=== PATIENT | female | born 1940 | race Caucasian/White ===

== ENCOUNTER 2017-01-04 09:07 | Day surgery (SDC) | payer MEDICARE, OTHER ==
[~2017-01-04 09:07] MED LIST: KETOROLAC TROMETHAMINE 0.45% 4 DROP/0.4 ML DROPERETTE OS PRN
[2017-01-04] MEDS ORDERED: TOBRAMYCIN SULFATE/DEXAMETH OPH OINTMENT 3.5 GM ONE (09:44)
[2017-01-04] MEDS ORDERED: CHONDR SU A NA/HYALUR INTRAOC KIT (SURGICARE) ONE (09:44)
[2017-01-04] MEDS ORDERED: LIDOCAINE 1% INJ-PF (10 MG/ML) 30 ML SDV ONE (09:44)
[2017-01-04] MEDS ORDERED: EPINEPHRINE INJ/PF 1 MG/1 ML AMPULE ONE (09:44)
[2017-01-04] MEDS ORDERED: MIDAZOLAM 2 MG/2 ML INJ ONE ×2 (10:14→10:41)
[2017-01-04] MEDS ORDERED: FENTANYL CITRATE INJ/PF 100 MCG/2 ML AMPUL ONE (10:15)
[2017-01-04] MEDS: TROPICAMIDE 1% OPH SOLN 3 ML OS PRN ×3 (10:20→10:47)
[2017-01-04] MEDS: CYCLOPENTOLATE 0.2%/PHENYLEPHRINE 1% OPH SOLN 2 ML OS PRN ×3 (10:20→10:48)
[2017-01-04] MEDS: BESIFLOXACIN HCL 0.6% OPH SUSP 5 ML BOTTLE OS PRN ×3 (10:21→11:35)
[2017-01-04] MEDS: TETRACAINE HCL 0.5% OPH SOLN 0.6 ML DROPERETTE OS PRN ×3 (10:21→11:07)
== END 2017-01-04 12:16 | disposition home or self-care (01) ==
LOC: SC 09:07
PROVIDERS: ATTEND Ophthalmology
PROC: 08RK3JZ Replacement of Left Lens with Synthetic Substitute, Percutaneous Approach (ICD-10-PCS; principal; 2017-01-04 10:30)
DX: H25.12 Age-related nuclear cataract, left eye (principal); F17.210 Nicotine dependence, cigarettes, uncomplicated; E78.00 Pure hypercholesterolemia, unspecified; K21.9 Gastro-esophageal reflux disease without esophagitis; M19.90 Unspecified osteoarthritis, unspecified site; J44.9 Chronic obstructive pulmonary disease, unspecified; F41.9 Anxiety disorder, unspecified; Z79.51 Long term (current) use of inhaled steroids; Z79.899 Other long term (current) drug therapy; Z88.5 Allergy status to narcotic agent; Z88.2 Allergy status to sulfonamides
CPT/HCPCS: 66984; C1783; V2630; J2250; J3490 ×3; A9270; J0171; J3010; 142

== ENCOUNTER 2017-01-18 06:20 | Day surgery (SDC) | payer MEDICARE, OTHER ==
[~2017-01-18 06:20] MED LIST changes: +KETOROLAC TROMETHAMINE 0.45% 4 DROP/0.4 ML DROPERETTE OD PRN; -KETOROLAC TROMETHAMINE 0.45% 4 DROP/0.4 ML DROPERETTE OS PRN
[2017-01-18] MEDS: TETRACAINE HCL 0.5% OPH SOLN 0.6 ML DROPERETTE OD PRN ×3 (06:51→07:35)
[2017-01-18] MEDS: CYCLOPENTOLATE 0.2%/PHENYLEPHRINE 1% OPH SOLN 2 ML OD PRN ×3 (06:52→07:17)
[2017-01-18] MEDS: BESIFLOXACIN HCL 0.6% OPH SUSP 5 ML BOTTLE OD PRN ×4 (06:52→07:56)
[2017-01-18] MEDS: TROPICAMIDE 1% OPH SOLN 3 ML OD PRN ×3 (06:52→07:16)
[2017-01-18] MEDS ORDERED: MIDAZOLAM 2 MG/2 ML INJ ONE (07:05)
[2017-01-18] MEDS ORDERED: EPINEPHRINE INJ/PF 1 MG/1 ML AMPULE ONE (07:15)
[2017-01-18] MEDS ORDERED: LIDOCAINE 1% INJ-PF (10 MG/ML) 30 ML SDV ONE (07:15)
[2017-01-18] MEDS ORDERED: CHONDR SU A NA/HYALUR INTRAOC KIT (SURGICARE) ONE (07:15)
[2017-01-18] MEDS: TOBRAMYCIN SULFATE/DEXAMETH OPH OINTMENT 3.5 GM ONE ×2 (07:47→07:56)
[2017-01-18] MEDS ORDERED: CHONDR SU A NA/HYALUR SOD 0.5 ML DISP.SYRIN ONE (08:49)
[2017-01-18] MEDS ORDERED: EPHEDRINE SULFATE INJ 50 MG/1 ML AMPULE ONE (10:32)
== END 2017-01-18 08:30 | disposition home or self-care (01) ==
LOC: SC 06:20
PROVIDERS: ATTEND Ophthalmology
PROC: 08RJ3JZ Replacement of Right Lens with Synthetic Substitute, Percutaneous Approach (ICD-10-PCS; principal; 2017-01-18 07:30)
DX: H25.11 Age-related nuclear cataract, right eye (principal); Z96.1 Presence of intraocular lens; J45.909 Unspecified asthma, uncomplicated; M19.90 Unspecified osteoarthritis, unspecified site; K21.9 Gastro-esophageal reflux disease without esophagitis; E78.00 Pure hypercholesterolemia, unspecified; Z79.899 Other long term (current) drug therapy; Z88.5 Allergy status to narcotic agent; Z88.2 Allergy status to sulfonamides; F17.210 Nicotine dependence, cigarettes, uncomplicated
CPT/HCPCS: 66984; C1783; V2630; J2250; J3490 ×4; A9270; J0171; 142

== ENCOUNTER → 2017-09-20 | Outpatient (CLI) | payer MEDICARE, OTHER ==
[2017-09-20 11:25] LABS: APPEARANCE,URINE CLEAR; BILIRUBIN,URINE NEGATIVE (NEGATIVE); COLOR,URINE STRAW; GLUCOSE, URINE NEGATIVE (NEGATIVE); KETONES,URINE NEGATIVE (NEGATIVE); LEUKOCYTE ESTERASE,URINE NEGATIVE (NEGATIVE); NITRITE,URINE NEGATIVE (NEGATIVE); PROTEIN,URINE NEGATIVE (NEGATIVE); URINE SPECIFIC GRAVITY 1.002; UROBILINOGEN,URINE NEGATIVE mg/dL (<2.0)
[2017-09-20 11:35] LABS: ANION GAP 13 (5-19); BLOOD UREA NITROGEN 7 mg/dL (7-20); CARBON DIOXIDE 28 mmol/L (22-30); CHLORIDE 97 mmol/L (98-107); GLUCOSE 90 mg/dL (75-110); POTASSIUM 4.8 mmol/L (3.6-5.0); SODIUM 137.6 mmol/L (137-145)
--- NOTE | 2017-09-20 12:13 | RADIOLOGY REPORT (SQ) ---
EXAM DESCRIPTION: CHEST PA/LATERAL COMPLETED DATE/TIME: 09/20/2017 11:35 am REASON FOR STUDY: PRE OP COMPARISON: None. EXAM PARAMETERS: NUMBER OF VIEWS: two views TECHNIQUE: Digital Frontal and Lateral radiographic views of the chest acquired. RADIATION DOSE: NA LIMITATIONS: none FINDINGS: LUNGS AND PLEURA: No opacities, masses or pneumothorax. No pleural effusion. Chronic appe aring interstitial changes are identified. Bilateral apical pleural-parenchymal scarring is identifi ed. There is evidence for obstructive lung disease. MEDIASTINUM AND HILAR STRUCTURES: No masses or contour abnormalities. HEART AND VASCULAR STRUCTURES: Heart normal size. No evidence for failure. BONES: No acute findings. HARDWARE: None in the chest. OTHER: No other significant finding. IMPRESSION: No acute findings. Obstructive lung disease with chronic appearing changes. Other find ings as noted above TECHNICAL DOCUMENTATION: JOB ID: [id number] [email or web address]- All Rights Reserved
[2017-09-20 14:25] LABS: ABSOLUTE BASOPHILS # (AUTO) 0.1 10^3/uL (0.0-0.2); ABSOLUTE EOSINOPHILS # (AUTO) 0.2 10^3/uL (0.0-0.6); ABSOLUTE MONOCYTES (AUTO) 0.5 10^3/uL (0.1-1.4); ABSOLUTE NEUT (AUTO) 3.5 10^3/uL (1.7-8.2); BASOPHILS % (AUTO) 1.3 % (0-2); EOSINOPHILS % (AUTO) 2.8 % (0-6); HEMATOCRIT 40.2 % (36.0-47.0); HEMOGLOBIN 13.5 g/dL (12.0-15.5); LYMPHOCYTES % (AUTO) 41.3 % (13-45); MEAN CORPUSCULAR HEMOGLOBIN 30.7 pg (27.0-33.4); MEAN CORPUSCULAR HGB CONC 33.5 g/dL (32.0-36.0); MEAN CORPUSCULAR VOLUME 92 fl (80-97); MONOCYTES % (AUTO) 6.5 % (3-13); PLATELET COUNT 246 10^3/uL (150-450); RED BLOOD COUNT 4.39 10^6/uL (3.72-5.28); RED CELL DISTRIBUTION WIDTH 13.7 % (11.5-14.0); SEGMENTED NEUTROPHILS % (AUTO) 48.1 % (42-78); TOTAL CELLS COUNTED % (AUTO) 100 %; WHITE BLOOD COUNT 7.2 10^3/uL (4.0-10.5)
--- NOTE | 2017-09-21 08:02 | EKG REPORT ---
SEVERITY:- NORMAL ECG - SINUS RHYTHM : Confirmed by: Laxmi Henry MD 21-Sep-2017 08:01:09
== END ==
LOC: OD 10:45
PROVIDERS: ATTEND Orthopaedic Surgery
DX: Z01.810 Encounter for preprocedural cardiovascular examination (principal); Z01.812 Encounter for preprocedural laboratory examination; Z01.818 Encounter for other preprocedural examination; J44.9 Chronic obstructive pulmonary disease, unspecified
CPT/HCPCS: 36415; 71020; 80048; 81001; 85025; 93005; 93010

== ENCOUNTER 2017-10-16 06:35 | Inpatient (IN) | payer MEDICARE, OTHER ==
[~2017-10-16 06:35] MED LIST changes: +BUPIVACAINE INJ/PF LIPOSOME/PF 266 MG/20 ML SDV IJ PRN; +BUPIVACAINE INJ/PF LIPOSOME/PF 266 MG/20 ML SDV ONE; +CEFAZOLIN INJ 1 GM VIAL INJ PRN; +IBUPROFEN 800 MG/NS 250 ML IV PRN; -KETOROLAC TROMETHAMINE 0.45% 4 DROP/0.4 ML DROPERETTE OD PRN; +LANSOPRAZOLE 15 MG TAB.RAP.DR PO PRN; +LIDOCAINE 0.5% INJ-PF (5 MG/ML) 50 ML SDV SUBCUT PRN; +OXYCODONE HCL SR 10 MG TABLET PO PRN; +THROMBIN (BOVINE) 5000 UNIT EPITAXIS KIT ONE; +THROMBIN (BOVINE) TOPICAL 20000 UNIT VIAL ONE; +VANCOMYCIN HCL 1,000 MG in DEXTROSE 5%-WATER 250 ML IV PRN
[2017-10-16] MEDS ORDERED: MIDAZOLAM 2 MG/2 ML INJ ONE (06:49)
[2017-10-16] MEDS ORDERED: FENTANYL CITRATE INJ/PF 100 MCG/2 ML AMPUL ONE (06:49)
[2017-10-16] MEDS ORDERED: ONDANSETRON HCL INJ/PF 4 MG/2 ML SDV ONE (06:50)
[2017-10-16] MEDS ORDERED: EPHEDRINE SULFATE INJ 50 MG/1 ML AMPULE ONE (06:50)
[2017-10-16] MEDS ORDERED: PROPOFOL INJ 200 MG/20 ML VIAL IV ONE (06:50)
[2017-10-16] MEDS ORDERED: ACETAMINOPHEN 0 ML IV ONE (06:51)
[2017-10-16] MEDS ORDERED: TRANEXAMIC ACID INJ/PF 1,000 MG/10 ML SDV IV ONE ×2 (07:37→12:00)
[2017-10-16] MEDS ORDERED: FENTANYL CITRATE INJ/PF 100 MCG/2 ML AMPUL IV PRN ×3 (09:22)
[2017-10-16] MEDS ORDERED: PROMETHAZINE HCL INJ 25 MG/1 ML VIAL IV PRN (09:22)
[2017-10-16] MEDS ORDERED: DIPHENHYDRAMINE HCL 50 MG/ML VIAL IV PRN ×2 (09:22→09:49)
--- NOTE | 2017-10-16 09:46 | Operative Report ---
Operative Report DATE OF SURGERY: 10/16/17 PREOPERATIVE DIAGNOSIS: Left hip arthritis OPERATION: Left hip arthroplasty SURGEON: CHIP NOVAK 1ST TIRE TESTER: SAWYER SCALES ANESTHESIA: Spinal TISSUE REMOVED OR ALTERED: Bone to pathology ESTIMATED BLOOD LOSS: 100 PROCEDURE: Implants used: Femur: Buffalo triathlon 2 size 3 femur Acetabular shell: 50 mm PSL shell Liner: 36 mm flat cross-link Poliquin liner Head: 36 mm chrome cobalt head -5 neck The patient is placed in a right lateral decubitus position on the operating table. The left lower extremity and hindquarter is prepped and draped in a sterile fashion. A curvilinear incision was made over the greater trochanter a posterior approach the hip was taken. The femoral head is dislocated and the femoral neck transected using an oscillating saw. Attention was next turned to the acetabulum. Soft tissues cleared off the acetabulum using electrocautery. The acetabulum was then prepared using a series of hemispherical reamers until a 50 millimeters reamer is seated. Subsequently a 50 millimeters [place] titanium PSL shell is impacted into position and secured with one screw. A standard flat 36 millimeters cross-link liner is impacted into the shell. Attention was next turned to the femur. Access is gained to the femoral canal using a box osteotome to the piriformis fossa. The femur is then prepared using a series of broaches until a number 3 broach is seated. A trial reduction was now performed using a 36 millimeters head with -5 neck. Preoperative leg length was recreated and is excellent anterior posterior stability. A decision was made to proceed with the above construct. All trial implants were removed. The wound is irrigated with pulsed lavage. A number 3 stem is impacted into the femoral canal. A trial reduction was again performed with a 36 mm head and a -5 neck. Findings as previously. The hip was dislocated one last time and the final chrome-cobalt head is impacted onto the trunnion. The hip was reduced. Wound is copiously irrigated with pulsed lavage. Sent closed in layers using interrupted Vicryl followed by cara. A sterile dressing is applied and the patient's returned to recovery room in satisfactory patient.
[2017-10-16] MEDS ORDERED: ESTROGENS,CONJUGATED 0.625 MG/1 GM 30 GM TUBE VG PRN (09:47)
[2017-10-16] MEDS ORDERED: MAG HYDROX/AL HYDROX/SIMETH SUSP 30 ML UDCUP PO PRN (09:49)
[2017-10-16] MEDS ORDERED: OXYCODONE HCL IR 5 MG TABLET PO PRN (09:49)
[2017-10-16] MEDS ORDERED: ONDANSETRON 4 MG TAB.RAPDIS PO PRN (09:49)
[2017-10-16] MEDS ORDERED: MORPHINE SULFATE 10 MG/ML INJ IM PRN (09:49)
[2017-10-16] MEDS ORDERED: ONDANSETRON HCL INJ/PF 4 MG/2 ML SDV IV PRN (09:49)
[2017-10-16] MEDS ORDERED: MORPHINE SULFATE 10 MG/ML INJ IV PRN ×2 (09:49)
[2017-10-16] MEDS ORDERED: ZOLPIDEM TARTRATE 5 MG TABLET PO PRN (09:49)
[2017-10-16] MEDS ORDERED: (PENDING PHARMACY ID) (Fluticasone Propionate [Flonase Allergy Relief] 9.9 ML) NS SCH (10:00)
[2017-10-16] MEDS ORDERED: [UNRECOGNIZED DRUG - OTHER] PO SCH (10:00)
[2017-10-16] MEDS ORDERED: ALBUTEROL SULFATE HFA (90 MCG/PUFF) 200 PUFF/8.5 GM MDI IH PRN ×2 (10:30→20:00)
[2017-10-16] MEDS ORDERED: TRANEXAMIC ACID INJ/PF 1,000 MG/10 ML SDV IV PRN (12:18)
--- NOTE | 2017-10-16 12:26 | RADIOLOGY REPORT (SQ) ---
EXAM DESCRIPTION: PELVIS AP COMPLETED DATE/TIME: 10/16/2017 10:36 am REASON FOR STUDY: Post Op Long Cassette in PACU M16.12 UNILATERAL PRIMARY OSTEOARTHRITIS, LEFT HIP COMPARISON: None. NUMBER OF VIEWS: One view TECHNIQUE: Digital radiographic images of the pelvis post-procedure LIMITATIONS: None. FINDINGS: BONES: No worrisome or unexpected findings post-procedure. Osteopenic DEVICE: Left hip replacement, non cemented. Single acetabular screw present SOFT TISSUES: No worrisome findings. Expected postoperative soft tissue changes. IMPRESSION: SATISFACTORY POSTOPERATIVE PELVIS. TECHNICAL DOCUMENTATION: JOB ID: [id number] [employer]- All Rights Reserved
[2017-10-16] MEDS ORDERED: PHENYLEPHRINE HCL INJ/PF 10 MG/1 ML SDV ONE (14:06)
[2017-10-16] MEDS ORDERED: DEXAMETHASONE SOD PHOSPHATE INJ 4 MG/1 ML VIAL ONE (14:06)
[2017-10-16] MEDS ORDERED: LIDOCAINE 2% INJ-PF (20 MG/ML) 2 ML AMPUL ONE (14:06)
[2017-10-16] MEDS: MORPHINE SULFATE 10 MG/ML INJ IV PRN ×5 (14:47→21:59)
[2017-10-16] MEDS: IBUPROFEN 800 MG in NORMAL SALINE 250 ML IV SCH ×2 (14:48→21:53)
[2017-10-16] MEDS ORDERED: ACETAMINOPHEN 100 ML IV ONE (15:49)
[2017-10-16] MEDS: HYDROCODONE/ACETAMINOPHEN 5-325 MG TABLET PO PRN (18:13)
[2017-10-16] MEDS: PREGABALIN 75 MG CAPSULE PO SCH (18:14)
[2017-10-16] MEDS: RINGERS SOLUTION,LACTATED 1,000 ML IV PRN (18:15)
[2017-10-16] MEDS: SIMVASTATIN 40 MG TABLET PO SCH (21:53)
[2017-10-16] MEDS: AMITRIPTYLINE HCL 75 MG TABLET PO SCH (21:53)
[2017-10-16] MEDS ORDERED: OXYCODONE HCL SR 10 MG TABLET PO SCH (22:00)
[2017-10-16] MEDS ORDERED: VANCOMYCIN HCL 1,000 MG in DEXTROSE 5%-WATER 250 ML IV ONE (22:00)
[2017-10-16] MEDS ORDERED: (PENDING PHARMACY ID) (Carisoprodol [Soma] 250 MG) PO SCH (22:00)
[2017-10-17 06:03] LABS: HEMATOCRIT 32.5 % (36.0-47.0); HEMOGLOBIN 10.9 g/dL (12.0-15.5); MEAN CORPUSCULAR HEMOGLOBIN 30.9 pg (27.0-33.4); MEAN CORPUSCULAR HGB CONC 33.6 g/dL (32.0-36.0); MEAN CORPUSCULAR VOLUME 92 fl (80-97); PLATELET COUNT 215 10^3/uL (150-450); RED BLOOD COUNT 3.53 10^6/uL (3.72-5.28); RED CELL DISTRIBUTION WIDTH 13.7 % (11.5-14.0); WHITE BLOOD COUNT 7.2 10^3/uL (4.0-10.5)
[2017-10-17 06:18] LABS: ANION GAP 7 (5-19); BLOOD UREA NITROGEN 8 mg/dL (7-20); CARBON DIOXIDE 27 mmol/L (22-30); CHLORIDE 100 mmol/L (98-107); GLUCOSE 106 mg/dL (75-110); POTASSIUM 4.1 mmol/L (3.6-5.0); SODIUM 134.2 mmol/L (137-145)
--- NOTE | 2017-10-17 06:42 | PDOC PROGRESS REPORT ---
Subjective Progress Note for:: 10/17/17 Reason For Visit: LEFT HIP ARTHRITIS 77-year-old white female postop day 1 left hip arthroplasty for osteoarthritis. Patient with minimal complaints. Physical Exam Vital Signs: Temp Pulse Resp BP Pulse Ox 36.8 C 64 17 123/52 L 93 10/16/17 23:08 10/16/17 23:08 10/16/17 23:08 10/16/17 23:08 10/16/17 23:08 Intake & Output 10/15/17 10/16/17 10/17/17 06:59 06:59 06:59 Intake Total 3050 Output Total 1050 Balance 2000 Weight 64.5 kg General appearance: PRESENT: no acute distress Head exam: PRESENT: normocephalic Respiratory exam: PRESENT: unlabored Cardiovascular exam: PRESENT: RRR Pulses: PRESENT: +1 pedal pulses bilateral Vascular exam: PRESENT: normal capillary refill GI/Abdominal exam: PRESENT: soft Rectal exam: PRESENT: deferred Extremities exam: PRESENT: other - Left hip dressing clean dry and intact. Leg lengths are equal. Distal neurovascular examination is intact. Neurological exam: PRESENT: alert, awake, oriented to person, oriented to place , oriented to time, oriented to situation. ABSENT: motor sensory deficit Psychiatric exam: PRESENT: appropriate affect, normal mood. ABSENT: homicidal ideation, suicidal ideation Skin exam: PRESENT: dry, intact, warm. ABSENT: cyanosis, rash Results Laboratory Results: 10/17/17 05:47 10/17/17 05:47 10/16/17 10/17/17 10/17/17 07:11 05:47 05:47 WBC 7.2 RBC 3.53 L Hgb 10.9 L Hct 32.5 L MCV 92 MCH 30.9 MCHC 33.6 RDW 13.7 Plt Count 215 Sodium 134.2 L Potassium 4.1 Chloride 100 Carbon Dioxide 27 Anion Gap 7 BUN 8 Creatinine 0.63 Est GFR ( Amer) > 60 Est GFR (Non-Af Amer) > 60 Glucose 106 Calcium 9.0 Blood Type A POSITIVE Antibody Screen NEGATIVE Impressions: Pelvis X-Ray 10/16/17 09:50 IMPRESSION: SATISFACTORY POSTOPERATIVE PELVIS. Status: Imported from PACS Assessment & Plan - Diagnosis (1) Arthritis of left hip Is this a current diagnosis for this admission?: Yes Plan: 77-year-old white female postop day 1 left hip arthroplasty with uneventful course. Patient will be seen by physical therapy today for weightbearing as tolerated ambulation. Anticipate discharge home tomorrow with home health nursing and home health physical therapy. - Time Time Spent with patient: 15-24 minutes Anticipated discharge: Home with Homehealth Within: within 24 hours
[2017-10-17] MEDS: IBUPROFEN 800 MG in NORMAL SALINE 250 ML IV SCH ×3 (06:50→21:25)
[2017-10-17] MEDS: RINGERS SOLUTION,LACTATED 1,000 ML IV PRN (06:52)
[2017-10-17] MEDS: LANSOPRAZOLE 30 MG TAB.RAP.DR PO SCH (06:52)
[2017-10-17] MEDS ORDERED: ESCITALOPRAM OXALATE 10 MG TABLET PO SCH (10:00)
[2017-10-17] MEDS: PREGABALIN 75 MG CAPSULE PO SCH ×2 (11:37→18:05)
[2017-10-17] MEDS: MULTIVITAMIN TABLET PO SCH (11:38)
[2017-10-17] MEDS: ESCITALOPRAM OXALATE 10 MG TABLET PO SCH (11:38)
[2017-10-17] MEDS: MORPHINE SULFATE 10 MG/ML INJ IV PRN (11:39)
[2017-10-17] MEDS: FLUTICASONE NASAL SPRAY 50 MCG/SPRY 120 SPRAY/16 GM NASL SCH (11:40)
[2017-10-17] MEDS: SIMVASTATIN 40 MG TABLET PO SCH (21:25)
[2017-10-17] MEDS: AMITRIPTYLINE HCL 75 MG TABLET PO SCH (21:25)
[2017-10-18] MEDS: IBUPROFEN 800 MG in NORMAL SALINE 250 ML IV SCH (05:52)
[2017-10-18] MEDS: LANSOPRAZOLE 30 MG TAB.RAP.DR PO SCH (05:52)
[2017-10-18 06:24] LABS: HEMATOCRIT 33.5 % (36.0-47.0); HEMOGLOBIN 11.1 g/dL (12.0-15.5); MEAN CORPUSCULAR HEMOGLOBIN 30.8 pg (27.0-33.4); MEAN CORPUSCULAR HGB CONC 33.2 g/dL (32.0-36.0); MEAN CORPUSCULAR VOLUME 93 fl (80-97); PLATELET COUNT 204 10^3/uL (150-450); RED CELL DISTRIBUTION WIDTH 13.7 % (11.5-14.0); WHITE BLOOD COUNT 6.3 10^3/uL (4.0-10.5)
--- NOTE | 2017-10-18 07:03 | PDOC DISCHARGE SUMMARY ---
General - Admit/Disc Date/PCP Admission Date/Primary Care Provider: 10/16/17 06:35 LAZARO LACY JR, MD Discharge Date: 10/18/17 - Discharge Diagnosis (1) Arthritis of left hip Is this a current diagnosis for this admission?: Yes - Additional Information Resuscitation Status: Full Code Discharge Diet: As Tolerated, Regular Discharge Activity: No Driving, No tub bath, Walk Frequently Home Medications: Albuterol Sulfate [Proair HFA] 2 puff IH Q8HP PRN 12/30/16 Amitriptyline HCl [Elavil 75 Mg Tablet] 75 mg PO QHS 12/30/16 Carisoprodol [Soma] 250 mg PO QHS 12/30/16 Omeprazole 40 mg PO DAILY 12/30/16 Simvastatin 40 mg PO QHS 12/30/16 Escitalopram Oxalate 5 mg PO QAM 01/11/17 Fluticasone Propionate [Flonase Nasal [place] 50 Mcg/[place] 16 gm] 1 spray NASL DAILY 10/16/17 Folic Acid/Multivit,Iron,[place] [One Daily For Women Tablet] 1 tab PO DAILY 10/16 Sennosides/Docusate Sodium [Senna-S Tablet] 3 each PO QHS 10/16/17 History of Present Illness History of Present Illness: CARSON LAWRENCE is a 77 year old female with progressive pain and decreased function due to left hip arthritis who was admitted through the OR for elective total left hip arthroplasty. Hospital Course Hospital Course: 77-year-old white female with left hip arthritis admitted through the OR for elective total left hip arthroplasty. Patient undergoes this procedure without complication and is returned to PACU in satisfactory condition. She was taken to the surgical floor where she was seen by nursing staff and Dr. Sorensen and Rufus MCCARTY for pain control. She works with physical therapy to work towards independent ambulation and increase strength and range of motion of left lower extremity. She makes great progress ambulating a total of 150 feet independently. She will be discharged to a retirement facility today with a rolling wheeled walker. Physical Exam Vital Signs: Temp Pulse Resp BP Pulse Ox 36.7 C 62 16 123/43 L 94 10/17/17 20:29 10/17/17 23:35 10/17/17 20:29 10/17/17 20:29 10/17/17 23:35 Intake & Output 10/16/17 10/17/17 10/18/17 06:59 06:59 06:59 Intake Total 3050 1360 Output Total 1050 500 Balance 2000 860 Weight 64.5 kg General appearance: PRESENT: no acute distress, well-developed, well-nourished Head exam: PRESENT: atraumatic, normocephalic Respiratory exam: PRESENT: unlabored Pulses: PRESENT: normal dorsalis pedis pul, +2 pedal pulses bilateral Vascular exam: PRESENT: normal capillary refill Additional comments: Patient sitting upright in chair at the bedside with bilateral lower extremities in full extension in retractable ottoman. Patient is nontender to palpation on the left hip and her OpSite dressings are clean dry and intact. These are left in place. She has minimal pedal edema and brisk capillary refill to toes on bilateral lower external knees. Her sensory motor functions are intact and her distal neurovascular exam is intact. Musculoskeletal exam: PRESENT: ambulatory Additional comments: Patient has made great progress of physical therapy and relating up to 150 feet independently. She will continue to work with physical therapy at retirement facility to improve distance of ambulation and strength range of motion of left lower extremity. Neurological exam: PRESENT: alert, awake, oriented to person, oriented to place , oriented to time, oriented to situation, CN II-XII grossly intact. ABSENT: motor sensory deficit Psychiatric exam: PRESENT: appropriate affect, normal mood. ABSENT: homicidal ideation, suicidal ideation Skin exam: PRESENT: dry, intact, warm. ABSENT: cyanosis, rash Results Laboratory Results: 10/18/17 05:36 10/17/17 05:47 10/18/17 05:36 WBC 6.3 RBC 3.60 L Hgb 11.1 L Hct 33.5 L MCV 93 MCH 30.8 MCHC 33.2 RDW 13.7 Plt Count 204 Impressions: Pelvis X-Ray 10/16/17 09:50 IMPRESSION: SATISFACTORY POSTOPERATIVE PELVIS. Plan Discharge Plan: 77-year-old white female 2 days status post total left hip arthroplasty. Patient has made great progress with physical therapy ambulating 150 feet independently. She will continue to work with physical therapy at a retirement facility to improve strength range of motion of left lower extremity. She will be discharged to a retirement facility today with a rolling walker. She will follow-up with [facility] for surgery with Dr. Sorensen and Rufus MCCARTY 2 weeks postoperatively for staple removal and reevaluation. Time Spent: Less than 30 Minutes
[2017-10-18] MEDS: ACETAMINOPHEN 325 MG TABLET PO PRN ×2 (10:43→16:23)
[2017-10-18] MEDS: FLUTICASONE NASAL SPRAY 50 MCG/SPRY 120 SPRAY/16 GM NASL SCH (10:44)
[2017-10-18] MEDS: ESCITALOPRAM OXALATE 10 MG TABLET PO SCH (10:44)
[2017-10-18] MEDS: MULTIVITAMIN TABLET PO SCH (10:44)
[2017-10-18] MEDS: PREGABALIN 75 MG CAPSULE PO SCH ×2 (10:45→18:15)
[2017-10-18] MEDS: HYDROCODONE/ACETAMINOPHEN 5-325 MG TABLET PO PRN (18:14)
[2017-10-18] MEDS: SIMVASTATIN 40 MG TABLET PO SCH (21:04)
[2017-10-18] MEDS: AMITRIPTYLINE HCL 75 MG TABLET PO SCH (21:04)
[2017-10-19] MEDS: HYDROCODONE/ACETAMINOPHEN 5-325 MG TABLET PO PRN ×3 (03:55→14:46)
[2017-10-19] MEDS: LANSOPRAZOLE 30 MG TAB.RAP.DR PO SCH (06:02)
[2017-10-19 06:37] LABS: HEMATOCRIT 30.1 % (36.0-47.0); HEMOGLOBIN 10.1 g/dL (12.0-15.5); MEAN CORPUSCULAR HEMOGLOBIN 30.8 pg (27.0-33.4); MEAN CORPUSCULAR HGB CONC 33.6 g/dL (32.0-36.0); MEAN CORPUSCULAR VOLUME 92 fl (80-97); PLATELET COUNT 163 10^3/uL (150-450); RED BLOOD COUNT 3.28 10^6/uL (3.72-5.28); RED CELL DISTRIBUTION WIDTH 13.3 % (11.5-14.0); WHITE BLOOD COUNT 7.1 10^3/uL (4.0-10.5)
[2017-10-19] MEDS: FLUTICASONE NASAL SPRAY 50 MCG/SPRY 120 SPRAY/16 GM NASL SCH (09:35)
[2017-10-19] MEDS: ESCITALOPRAM OXALATE 10 MG TABLET PO SCH (09:35)
[2017-10-19] MEDS: MULTIVITAMIN TABLET PO SCH (09:35)
[2017-10-19] MEDS: PREGABALIN 75 MG CAPSULE PO SCH (09:36)
[2017-10-19 14:32] VITALS: BP 140/71
== END 2017-10-19 15:16 | DRG 470 ==
LOC: INOR 06:35 → 4S 11:14
PROVIDERS: ADMIT Orthopaedic Surgery; ATTEND Orthopaedic Surgery
PROC: 0SRB02Z Replacement of Left Hip Joint with Metal on Polyethylene Synthetic Substitute, Open Approach (ICD-10-PCS; principal; 2017-10-16 08:45)
DX: M16.12 Unilateral primary osteoarthritis, left hip (principal); F32.9 Major depressive disorder, single episode, unspecified; J44.9 Chronic obstructive pulmonary disease, unspecified; E78.5 Hyperlipidemia, unspecified; K21.9 Gastro-esophageal reflux disease without esophagitis; Z88.6 Allergy status to analgesic agent; Z88.2 Allergy status to sulfonamides; Z79.899 Other long term (current) drug therapy; Z87.891 Personal history of nicotine dependence
CPT/HCPCS: 01214; 36415; 72170; 80048; 85027; 86850; 86900; 86901; 88304; 88311; 94799; C1713; C1751; C9290; G8978-GP; G8979-GP; G8987-GO; G8988-GO; J0131; J0690; J1100; J1741; J2250; J2270; J2370; J2405; J2704; J3010; J3370; J3490; J7050; J7060; J7120